=== PATIENT | female | born 1970 | race Caucasian/White ===

== ENCOUNTER → 2023-12-29 13:25 | Outpatient (REF) | payer OTHER, SELFPAY | LOC: RAD 13:25 | PROVIDERS: ATTENDING PHYSICIAN Family Medicine; OTHER PHYSICIAN Family Medicine | DX: M47.816 Spondylosis without myelopathy or radiculopathy, lumbar region (principal); Z87.891 Personal history of nicotine dependence; E04.2 Nontoxic multinodular goiter | CPT/HCPCS: 71271; 72110; 76536 ==

== ENCOUNTER → 2024-01-06 10:02 | Outpatient (REF) | payer OTHER, SELFPAY | LOC: RCS 10:02 | PROVIDERS: ATTENDING PHYSICIAN Internal Medicine; FAMILY PHYSICIAN Family Medicine | DX: I47.11 Inappropriate sinus tachycardia, so stated (principal) | CPT/HCPCS: 93225; 93226 ==

== ENCOUNTER → 2024-01-12 11:22 | Outpatient (REF) | payer OTHER, SELFPAY | LOC: RCS 11:22 | PROVIDERS: ATTENDING PHYSICIAN Internal Medicine; FAMILY PHYSICIAN Family Medicine | DX: R00.0 Tachycardia, unspecified (principal); E78.00 Pure hypercholesterolemia, unspecified; I34.0 Nonrheumatic mitral (valve) insufficiency; R94.31 Abnormal electrocardiogram [ECG] [EKG] | CPT/HCPCS: 93306 ==

== ENCOUNTER → 2024-02-02 08:12 | Outpatient (REF) | payer OTHER, SELFPAY | LOC: DHCBC/DCA 08:12 | PROVIDERS: ATTENDING PHYSICIAN Internal Medicine; FAMILY PHYSICIAN Family Medicine | DX: R00.0 Tachycardia, unspecified (principal); E78.00 Pure hypercholesterolemia, unspecified; I34.0 Nonrheumatic mitral (valve) insufficiency; R94.31 Abnormal electrocardiogram [ECG] [EKG] | CPT/HCPCS: 78452; 93017; A9500; J2785 ==

== ENCOUNTER → 2024-11-29 10:49 | Outpatient (REF) | payer OTHER, SELFPAY | LOC: DHSLP 10:49 | PROVIDERS: ATTENDING PHYSICIAN Family Medicine | DX: G47.33 Obstructive sleep apnea (adult) (pediatric) (principal) | CPT/HCPCS: 95800 ==

== ENCOUNTER 2024-12-10 06:32 | Day surgery (SDC) | payer OTHER, SELFPAY | END 2024-12-10 08:58 | disposition home or self-care (01) | LOC: GI 06:32 | PROVIDERS: ATTENDING PHYSICIAN Specialist | DX: Z12.11 Encounter for screening for malignant neoplasm of colon (principal); Z80.0 Family history of malignant neoplasm of digestive organs; D12.3 Benign neoplasm of transverse colon; K63.5 Polyp of colon; K62.1 Rectal polyp | CPT/HCPCS: 45385; 45380; 88305 ==

== ENCOUNTER → 2024-12-11 14:19 | Outpatient (REF) | payer OTHER, SELFPAY | LOC: WDC 14:19 | PROVIDERS: ATTENDING PHYSICIAN Family Medicine | DX: E04.2 Nontoxic multinodular goiter (principal); Z12.31 Encounter for screening mammogram for malignant neoplasm of breast | CPT/HCPCS: 76536; 77063; 77067; 77080 ==

== ENCOUNTER → 2025-01-03 14:49 | Outpatient (REF) | payer OTHER, SELFPAY | LOC: HWRAD 14:49 | PROVIDERS: ATTENDING PHYSICIAN Family Medicine | DX: F17.210 Nicotine dependence, cigarettes, uncomplicated (principal) | CPT/HCPCS: 71271 ==